=== PATIENT | male | born 1995 | race Caucasian/White ===

== ENCOUNTER 2024-01-07 01:23 | Emergency (ER) | payer SELFPAY ==
[~2024-01-07] VITALS: Ht 185.4 cm; Wt 85.0 kg
[2024-01-07 01:56] VITALS: O2SAT 100
[2024-01-07] MEDS: KETOROLAC 15MG/ML VIAL IM ONE (03:01)
[2024-01-07] MEDS ORDERED: NAPR-1176 MT (04:06)
[2024-01-07] MEDS: HYDROCODONE/ACETAMINOPHEN 5/325MG TABLET PO ONE (04:30)
[2024-01-07 04:48] VITALS: BP 129/77; PULSE 86; RESP 20; TEMP 36.83628; O2SAT 100
== END 2024-01-07 04:51 | disposition home or self-care (01) ==
LOC: ER 01:23
DX: S02.2XXA Fracture of nasal bones, initial encounter for closed fracture (principal); Y08.89XA Assault by other specified means, initial encounter; Y93.89 Activity, other specified; Y92.89 Other specified places as the place of occurrence of the external cause; Y99.8 Other external cause status; Z79.1 Long term (current) use of non-steroidal anti-inflammatories (NSAID)
CPT/HCPCS: 70486; 99285; J1885; Z7610 ×2